=== PATIENT | female | born 1965 | race Caucasian/White ===

== ENCOUNTER 2017-02-01 21:16 | Inpatient (IN) | payer OTHER ==
[~2017-02-01] VITALS: Ht 182.8 cm; Wt 77.8 kg
--- NOTE | ~2017-02-01 | CON ---
[place], [place] REPORT OF CONSULTATION NAME: PAT LOU UNIT #: [id number] ROOM: 523 DOCTOR: KYLAH MCLEAN MD BIRTHDATE: [birth year] DOS: 02/02/2017 NEPHROLOGY CONSULTATION REASON FOR CONSULTATION: Acute hyponatremia. TIME OF SERVICE: 9:00 a.m. HISTORY OF PRESENT ILLNESS: The patient is a 51-year-old woman, not previously known to our service that was seen in renal consultation because of hyponatremia. She had a fall yesterday and presented with a serum sodium level of 120. She was walking, flipped on gravel, she was wearing sandals. She was noted to have a right transverse fracture of the distal fibula above the level of the syndesmosis and a comminuted fracture of the distal tibial metadiaphysis. Previous laboratories were reviewed and none are available for prior serum sodium levels in our system. TSH levels were checked and normal. Slight high triglycerides, but otherwise cholesterol panel is normal. She does not report any known history of hyponatremia. She is on chlorthalidone for blood pressure. She is also diabetic. She does not report any specific changes in appetite prior to admission. Denies any nausea, vomiting, or significant loss of diarrhea output. She is not weightbearing at this time. Orthopedics has been in to see her. In terms of her diabetes control, she is on metformin and her A1c was good at 5.9. She is on Toujeo as well. Denies any history of diabetic kidney disease. She is unaware of any abnormal renal function, her creatinine is normal at 0.7 at this time. REVIEW OF SYSTEMS: As per the HPI, otherwise all systems reviewed and negative. Past medical, family and social history are reviewed from the H and P and unchanged. HOME MEDICATIONS: Albuterol, Xanax, Elavil, atenolol, chlorthalidone, D3, Cymbalta, Neurontin, Toujeo, Meloxicam, metformin and tizanidine. PHYSICAL EXAMINATION: VITAL SIGNS: Blood pressure is 100s to 120s over 70s to 80s, afebrile, heart rate 70s, respiratory rate 16-20, pulse ox 95% to 97% on room air. GENERAL: She is awake, alert and oriented and in some distress from pain in her right leg. Denies any other acute respiratory distress or discomfort. No diaphoresis noted. SKIN: Without diffuse rashes or breakdowns. Few scattered areas of scarring is noted. LUNGS: Clear to auscultation without audible rales, rhonchi or wheeze. CARDIOVASCULAR: Regular rate. No audible rub. No lift or heave. ABDOMEN: Soft, nontender, nondistended. No rebound, no guarding BACK: No CVA tenderness. No back tenderness. EXTREMITIES: Right leg is braced in soft cast. Dorsal perfusion is intact. LABORATORIES AND DIAGNOSTICS: White blood cell count 11.9, hemoglobin 13.2, platelets 373. Sodium 120, potassium 3.7, chloride 82, bicarbonate 29, BUN 9, [place], [place] REPORT OF CONSULTATION NAME: PAT OLU UNIT #: [id number] ROOM: 523 DOCTOR: KYLAH MCLEAN MD BIRTHDATE: [birth year] creatinine 0.7, glucose 101. A1c 5.9. Calcium 8.7. Triglycerides 251. Total cholesterol 145. Vitamin D, TSH are normal. Ankle tib-fib x-ray is reviewed. ASSESSMENT AND PLAN: Hyponatremia. I suspect acute but prior labs are not available. This may also be somewhat chronic because of thiazide diuretic use or antidepressant use and other medication effects as a result of significant antidiuretic hormone response after being in acute pain. Regardless gentle IV fluids with normal saline as you are doing is acceptable, encourage oral intake, limit excessive fluid intake and discontinue thiazide diuretic for now. If there is no improvement or if there is other urine indices such as electrolytes or osmolalities to suggest further volume depletion, more excessive saline can be administered. I would avoid the use of hypotonic solutions and continue to follow her laboratories on an ongoing basis. She has no acute neurologic symptoms at this time and there is no renal contraindication for surgery for her leg fracture. Diabetes and blood pressure control is otherwise very acceptable and we will continue to follow. Case was discussed with the patient's bedside nurse. KYLAH MCLEAN MD CM:CONSTR:REPORT OF CONSULTATION 1226 02/03/17 0215 interface
[2017-02-01 21:45] VITALS: BP 140/90
[2017-02-02] VITALS: BP 122/80
[2017-02-02] MEDS ORDERED: ALPRAZOLAM0.5 M3 PO (00:31)
[2017-02-02] MEDS ORDERED: ATENOLOL-CHLOR1 EAC1 PO (00:32)
[2017-02-02] MEDS ORDERED: CYMBALTA30 MG PO (00:33)
[2017-02-02] MEDS ORDERED: CYMBALTA60 MG PO (00:33)
[2017-02-02] MEDS ORDERED: VENTOLIN 02.5 MG/3 M INH (00:34)
[2017-02-02] MEDS ORDERED: TIZANIDINE HCL2 MG PO (00:35)
[2017-02-02] MEDS ORDERED: VITAMIN D50000 UNIT PO (00:35)
[2017-02-02] MEDS ORDERED: NEURONTIN300 MG PO (00:36)
[2017-02-02] MEDS ORDERED: MELOXICAM15 MG PO (00:36)
[2017-02-02] MEDS ORDERED: AMITRIPTYLINE25 MG PO (00:36)
[2017-02-02] MEDS ORDERED: METFORMIN500 MG PO (00:37)
[2017-02-02] MEDS ORDERED: TOUJEO SOL300 UNIT/1 SQ (00:38)
[2017-02-02 04:00] VITALS: BP 122/80
[2017-02-02 06:19] LABS: BASO # 0.1 10*3/uL (0.0-0.1); BASO % 0.4 % (0.0-1.0); EOS # 0.1 10*3/uL (0.0-0.4); EOS % 0.8 % (1.0-4.0); HEMATOCRIT 36.2 % (37.0-47.0); HEMOGLOBIN 13.2 g/dl (12.0-16.0); IG # 0.1 10*3/uL (0.0-0.1); LYMPH # 2.9 10*3/uL (1.3-4.4); LYMPH % 24.3 % (27.0-41.0); MEAN CELL VOLUME 91.2 fl (81.0-99.0); MEAN CORPUSCULAR HGB 33.2 pg (27.0-31.0); MEAN CORPUSCULAR HGB CONC 36.5 g/dl (33.0-37.0); MEAN PLATELET VOLUME 8.8 fl (9.6-12.3); MONO % 8.4 % (3.0-9.0); NEUT # 7.8 10*3/uL (2.3-7.9); NEUT % 65.5 % (47.0-73.0); PLATELET COUNT AUTOMATED 373 10*3/uL (130-400); RED BLOOD COUNT 3.97 10*6/uL (4.10-5.10); RED CELL DISTRI WIDTH 12.8 % (0-14.5); WHITE BLOOD COUNT 11.9 10*3/uL (4.8-10.8)
[2017-02-02 06:44] LABS: HEMOGLOBIN A1c 5.9 % (4.8-5.6)
[2017-02-02 07:01] LABS: BUN 9 mg/dl (7-24); CARBON DIOXIDE 29 mmol/L (21-32); CHLORIDE 82 mmol/L (98-107); CHOLESTEROL 145 mg/dL (<200); EST GLOM FILT AFRICAN AMERICAN > 60 ml/min; GLUCOSE 101 mg/dL (65-99); HDL CHOLESTEROL 43 mg/dl (40-60); LDL CHOLESTEROL 52 mg/dL (9-159); POTASSIUM 3.7 mmol/L (3.5-5.1); SODIUM 120 mmol/L (136-145); TRIGLYCERIDES 251 mg/dl (<150); VLDL CHOLESTEROL 50 mg/dL (6-40)
[2017-02-02 07:11] LABS: PROTHROMBIN TIME 10.6 SECONDS (9.0-12.4)
[2017-02-02 07:34] LABS: VITAMIN D, 25-HYDROXY 53.9 ng/mL (30-100)
[2017-02-02 07:35] LABS: FOLIC ACID 12.06 ng/mL (>5.38)
[2017-02-02 08:00] VITALS: BP 109/70
[2017-02-02 11:53] LABS: URINE AMPHETAMINES < 1000 (1000ng/ml); URINE BARBITURATES < 200 (200ng/ml); URINE COCAINE < 300 (300ng/ml)
[2017-02-02 12:00] VITALS: BP 127/82
== END 2017-02-02 13:48 | disposition short-term general hospital (02) | DRG 563 ==
LOC: ED 21:16 → EDHOLD 23:12 → 5E 23:12
PROVIDERS: Internal Medicine
DX: S82.451A Displaced comminuted fracture of shaft of right fibula, initial encounter for closed fracture (principal); E11.40 Type 2 diabetes mellitus with diabetic neuropathy, unspecified; E87.1 Hypo-osmolality and hyponatremia; S82.251A Displaced comminuted fracture of shaft of right tibia, initial encounter for closed fracture; I10 Essential (primary) hypertension; F17.210 Nicotine dependence, cigarettes, uncomplicated; D72.829 Elevated white blood cell count, unspecified; F32.9 Major depressive disorder, single episode, unspecified; W01.0XXA Fall on same level from slipping, tripping and stumbling without subsequent striking against object, initial encounter; Y93.89 Activity, other specified; Z71.6 Tobacco abuse counseling; Y92.89 Other specified places as the place of occurrence of the external cause; Y99.8 Other external cause status; Z79.4 Long term (current) use of insulin; Z79.84 Long term (current) use of oral hypoglycemic drugs; Z79.899 Other long term (current) drug therapy; Z90.49 Acquired absence of other specified parts of digestive tract; Z80.1 Family history of malignant neoplasm of trachea, bronchus and lung; Z83.3 Family history of diabetes mellitus

== ENCOUNTER → 2020-06-17 | Outpatient (CLI) | payer OTHER ==
[~2020-06-17] MED LIST: ALPRAZOLAM0.5 M3 PO; AMITRIPTYLINE25 MG PO; ATENOLOL-CHLOR1 EAC1 PO; CYMBALTA30 MG PO; CYMBALTA60 MG PO; MELOXICAM15 MG PO; METFORMIN500 MG PO; NEURONTIN300 MG PO; TIZANIDINE HCL2 MG PO; TOUJEO SOL300 UNIT/1 SQ; VENTOLIN 02.5 MG/3 M INH; VITAMIN D50000 UNIT PO
== END | disposition home or self-care (01) ==
LOC: ORTHO 10:01
PROVIDERS: ATTEND Orthopaedic Surgery
DX: M79.604 Pain in right leg (principal); Z98.890 Other specified postprocedural states

== ENCOUNTER → 2020-07-08 | Outpatient (CLI) | payer OTHER | END | disposition home or self-care (01) | LOC: ORTHO 02:57 | PROVIDERS: ATTEND Orthopaedic Surgery | DX: S82.234A Nondisplaced oblique fracture of shaft of right tibia, initial encounter for closed fracture (principal); X58.XXXA Exposure to other specified factors, initial encounter; Y93.89 Activity, other specified; Y92.89 Other specified places as the place of occurrence of the external cause; Y99.8 Other external cause status ==

== ENCOUNTER → 2020-08-18 | Outpatient (CLI) | payer OTHER | END | disposition home or self-care (01) | LOC: ORTHO 00:20 | PROVIDERS: ATTEND Orthopaedic Surgery | DX: S82.234D Nondisplaced oblique fracture of shaft of right tibia, subsequent encounter for closed fracture with routine healing (principal); X58.XXXD Exposure to other specified factors, subsequent encounter ==